=== PATIENT | female | born 1990 | race Caucasian/White ===

== ENCOUNTER 2021-10-25 07:15 | Inpatient (IN) | payer MEDICAID ==
[2021-10-25] MEDS ORDERED: Acetaminophen 500 MG Tab PO ONE (08:30)
[2021-10-25] MEDS ORDERED: Scopolamine 1.5 MG Transdermal Patch TOP SCH (08:30)
[2021-10-25] MEDS ORDERED: Dextrose 5%-Lactated Ringers 1,000 ML IV SCH ×2 (08:30→15:00)
[2021-10-25] MEDS ORDERED: Celecoxib 200 MG Cap PO ONE (09:00)
[2021-10-25] MEDS ORDERED: cefOXitin 2 GM in Sodium Chloride 0.9% 50 ML IV ONE (09:15)
[2021-10-25 09:18] LABS: HEMOGLOBIN A1C 7.5 % (4.5-6.2)
[2021-10-25] MEDS ORDERED: Propofol 200 MG/20 ML SDV ONE (10:14)
[2021-10-25] MEDS ORDERED: Dexamethasone 4 MG/ML SDV ONE (10:14)
[2021-10-25] MEDS ORDERED: Ondansetron 4 MG/2 ML SDV ONE (10:14)
[2021-10-25] MEDS ORDERED: fentaNYL 250 MCG/5 ML SDV ONE ×2 (10:14→12:17)
[2021-10-25] MEDS ORDERED: Glycopyrrolate 0.2 MG/ML 5 ML MDV ONE (10:14)
[2021-10-25] MEDS ORDERED: Succinylcholine 200 MG/10 ML MDV ONE (10:14)
[2021-10-25] MEDS ORDERED: Neostigmine Methylsulfate 1 MG/ML 5 ML Syringe ONE (10:14)
[2021-10-25] MEDS ORDERED: Rocuronium 50 MG/5 ML Vial ONE (10:14)
[2021-10-25] MEDS ORDERED: Ketamine 15 MG in Sodium Chloride 0.9% 19.85 ML IV SCH (10:15)
[2021-10-25] MEDS ORDERED: Ketamine 500 MG/5 ML MDV IV SCH (10:15)
[2021-10-25] MEDS ORDERED: Lactated Ringers 1,000 ML ONE (10:17)
[2021-10-25] MEDS ORDERED: Labetalol 20 MG/4 ML Syringe ONE (12:49)
[2021-10-25] MEDS ORDERED: cefOXitin 2 GM Vial IRR ONE (12:53)
[2021-10-25] MEDS ORDERED: hydrOXYzine HCL 100 MG/2 ML SDV IM ONE (13:59)
[2021-10-25] MEDS ORDERED: fentaNYL 100 MCG/2 ML SDV IVPUSH ONE (13:59)
[2021-10-25] MEDS ORDERED: Cyclobenzaprine 10 MG Tab PO PRN (14:52)
[2021-10-25] MEDS ORDERED: Metoclopramide 10 MG/2 ML SDV IVPUSH PRN (15:00)
[2021-10-25] MEDS ORDERED: Glucagon,Human Recombinant 1 MG Vial IM PRN (15:00)
[2021-10-25] MEDS ORDERED: diphenhydrAMINE 50 MG/ML SDV IVPUSH PRN (15:00)
[2021-10-25] MEDS ORDERED: Acetaminophen 500 MG Tab PO PRN (15:00)
[2021-10-25] MEDS ORDERED: 50% Dextrose in Water 50 ML Syringe IVPUSH PRN (15:00)
[2021-10-25] MEDS ORDERED: hydrOXYzine HCL 100 MG/2 ML SDV IM PRN (15:00)
[2021-10-25] MEDS ORDERED: Ondansetron 4 MG/2 ML SDV IVPUSH PRN (15:00)
[2021-10-25] MEDS ORDERED: HYDROmorphone 0.5 MG/0.5 ML Syringe IVPUSH PRN (15:00)
[2021-10-25] MEDS ORDERED: Labetalol 20 MG/4 ML Syringe IVPUSH PRN (15:00)
[2021-10-25] MEDS: Lactated Ringers 1,000 ML IV SCH (15:02)
[2021-10-25] MEDS: HYDROmorphone 1 MG/ML Syringe IV PRN ×2 (15:18→19:37)
[2021-10-25] MEDS ORDERED: Pantoprazole 40 MG Vial IVPUSH SCH (16:00)
[2021-10-25] MEDS: Potassium Chloride 20 MEQ, Lidocaine 1% 2 ML in Sodium Chloride 0.9% 100 ML IV SCH ×2 (16:30→19:44)
[2021-10-25] MEDS: MVI, Adult with Vitamin K 10 ML, Thiamine 200 MG, Zinc/Copper/Manganese/Selenium 1 ML i... IV SCH ×4 (16:31)
[2021-10-25] MEDS: Insulin Lispro 100 Unit/ML 3 ML KwikPen SUBCUT SCH ×2 (16:41→21:11)
[2021-10-25] MEDS: Acetaminophen 500 MG Tab PO SCH ×2 (16:42→23:23)
[2021-10-25] MEDS: Heparin Sodium 5,000 Units/ML Vial SUBCUT SCH (17:43)
[2021-10-25] MEDS: cefOXitin 2 GM in Sodium Chloride 0.9% 50 ML IV SCH (18:30)
[2021-10-26] MEDS: cefOXitin 2 GM in Sodium Chloride 0.9% 50 ML IV SCH ×4 (00:30→18:44)
[2021-10-26] MEDS: traMADol 50 MG Tab PO PRN ×3 (02:11→23:40)
[2021-10-26] MEDS: Lactated Ringers 1,000 ML IV SCH (04:38)
[2021-10-26] MEDS: Insulin Lispro 100 Unit/ML 3 ML KwikPen SUBCUT SCH ×4 (05:03→21:43)
[2021-10-26] MEDS ORDERED: Iopamidol 612 MG/ML 50 ML SDV PO ONE (05:04)
[2021-10-26] MEDS: Heparin Sodium 5,000 Units/ML Vial SUBCUT SCH ×2 (05:55→18:44)
[2021-10-26] MEDS: oxyCODONE 5 MG Tab PO PRN ×2 (05:56→21:02)
[2021-10-26] MEDS ORDERED: Lactated Ringers 1,000 ML IV SCH (07:15)
[2021-10-26] MEDS: Potassium Chloride 20 MEQ, Lidocaine 1% 2 ML in Sodium Chloride 0.9% 100 ML IV SCH ×3 (08:39→15:40)
[2021-10-26] MEDS: Celecoxib 200 MG Cap PO SCH ×2 (08:47→21:03)
[2021-10-26] MEDS: Fluticasone NASAL Spray 16 GM Bottle NASBOTH SCH ×2 (08:47→08:50)
[2021-10-26] MEDS: Acetaminophen 500 MG Tab PO SCH ×3 (08:47→23:29)
[2021-10-26] MEDS: Hydrochlorothiazide 25 MG Tab PO SCH (08:47)
[2021-10-26] MEDS: SCOPOLAMINE PATCH CHECK TOP SCH (08:48)
[2021-10-26] MEDS: MVI, Adult with Vitamin K 10 ML, Thiamine 200 MG, Zinc/Copper/Manganese/Selenium 1 ML i... IV SCH ×4 (15:41)
[2021-10-26] MEDS ORDERED: Pantoprazole 40 MG Delayed-Release Granules 1 Packet PO SCH (16:00)
[2021-10-27] MEDS: Insulin Lispro 100 Unit/ML 3 ML KwikPen SUBCUT SCH (05:04)
[2021-10-27] MEDS: Heparin Sodium 5,000 Units/ML Vial SUBCUT SCH (06:02)
[2021-10-27] MEDS: Acetaminophen 500 MG Tab PO SCH (08:19)
[2021-10-27] MEDS: oxyCODONE 5 MG Tab PO PRN (08:19)
[2021-10-27] MEDS: Fluticasone NASAL Spray 16 GM Bottle NASBOTH SCH (08:20)
[2021-10-27] MEDS: Celecoxib 200 MG Cap PO SCH (08:21)
[2021-10-27] MEDS: Hydrochlorothiazide 25 MG Tab PO SCH (08:21)
[2021-10-27] MEDS: SCOPOLAMINE PATCH CHECK TOP SCH (08:21)
[2021-10-27] MEDS ORDERED: Potassium Chloride 10% 20 MEQ/15 ML Soln 15 ML UD Cup PO ONE (09:00)
[2021-10-27] MEDS ORDERED: Cyanocobalamin (Vitamin B12) 1,000 MCG/ML SDV IM ONE (09:00)
== END 2021-10-27 10:00 | disposition home or self-care (01) | DRG 621 ==
LOC: EDSTATUS 07:15 → JP.SDS 08:33 → JP.MS 08:33
PROVIDERS: ADMIT Surgery; ATTEND Surgery
PROC: 0D164ZA Bypass Stomach to Jejunum, Percutaneous Endoscopic Approach (ICD-10-PCS; principal; 2021-10-25)
PROC: 0FB24ZX Excision of Left Lobe Liver, Percutaneous Endoscopic Approach, Diagnostic (ICD-10-PCS; 2021-10-25)
PROC: 0BQT4ZZ Repair Diaphragm, Percutaneous Endoscopic Approach (ICD-10-PCS; 2021-10-25)
PROC: 0JB63ZZ Excision of Chest Subcutaneous Tissue and Fascia, Percutaneous Approach (ICD-10-PCS; 2021-10-25)
DX: E66.01 Morbid (severe) obesity due to excess calories (principal); R16.0 Hepatomegaly, not elsewhere classified; K44.9 Diaphragmatic hernia without obstruction or gangrene; D17.4 Benign lipomatous neoplasm of intrathoracic organs; E11.9 Type 2 diabetes mellitus without complications; I10 Essential (primary) hypertension; E87.6 Hypokalemia; Z79.899 Other long term (current) drug therapy; Z79.82 Long term (current) use of aspirin; Z88.8 Allergy status to other drugs, medicaments and biological substances; Z68.43 Body mass index [BMI] 50.0-59.9, adult
CPT/HCPCS: 36415; 74240; 74240-26; 80048; 80053; 81025; 82947; 83036; 83735; 84100; 85025; 85027; 86850; 86900; 86901; 88305; 88307; 88313; A9270-GY; C9113; J0171; J0330; J0694; J1100; J1170; J1644; J1815; J1815-GY; J2405; J2704; J2710; J2795; J3010; J3410; J3411; J3420; J3480; J3490; J7030; J7120; J7121; Q9967

== ENCOUNTER 2021-12-10 06:28 | Day surgery (SDC) | payer MEDICAID ==
[~2021-12-10 06:28] MED LIST: MVI, Adult with Vitamin K 10 ML, Thiamine 200 MG, Chromium/Copper/Mang/Selen/Zn 1 ML in... IV ONE
[2021-12-10] MEDS ORDERED: Lactated Ringers 1,000 ML IV SCH (07:00)
[2021-12-10] MEDS ORDERED: Cyanocobalamin (Vitamin B12) 1,000 MCG/ML SDV IM ONE (07:00)
[2021-12-10] MEDS ORDERED: Glycopyrrolate 0.2 MG/ML 2 ML SDV IVPUSH ONE (07:00)
[2021-12-10] MEDS ORDERED: Midazolam 1 MG/ML 2 ML SDV ONE (07:12)
[2021-12-10] MEDS ORDERED: fentaNYL 100 MCG/2 ML SDV ONE (07:12)
[2021-12-10] MEDS ORDERED: Propofol 200 MG/20 ML SDV ONE (07:12)
[2021-12-10] MEDS ORDERED: Lactated Ringers 1,000 ML ONE (09:54)
== END 2021-12-10 11:31 | disposition home or self-care (01) ==
LOC: JP.SDS 06:28
PROVIDERS: ATTEND Surgery
DX: K91.89 Other postprocedural complications and disorders of digestive system (principal); Z98.84 Bariatric surgery status
CPT/HCPCS: 81025; C1726; J2250; J2704; J3010; J3411; J3420; J3490; J7120

== ENCOUNTER 2021-12-31 07:16 | Day surgery (SDC) | payer MEDICAID ==
[~2021-12-31 07:16] MED LIST changes: -MVI, Adult with Vitamin K 10 ML, Thiamine 200 MG, Chromium/Copper/Mang/Selen/Zn 1 ML in... IV ONE; +Midazolam 1 MG/ML 2 ML SDV ONE; +Propofol 200 MG/20 ML SDV ONE; +fentaNYL 100 MCG/2 ML SDV ONE
[2021-12-31] MEDS ORDERED: Lactated Ringers 1,000 ML IV SCH (07:30)
[2021-12-31] MEDS ORDERED: Cyanocobalamin (Vitamin B12) 1,000 MCG/ML SDV IM ONE (08:15)
[2021-12-31] MEDS ORDERED: MVI, Adult with Vitamin K 10 ML, Zinc/Copper/Manganese/Selenium 1 ML, Thiamine 200 MG i... IV ONE ×4 (08:30)
[2021-12-31] MEDS ORDERED: Glycopyrrolate 0.2 MG/ML 2 ML SDV IVPUSH ONE (08:30)
== END 2021-12-31 10:52 | disposition home or self-care (01) ==
LOC: JP.SDS 07:16
PROVIDERS: ATTEND Surgery
DX: K91.89 Other postprocedural complications and disorders of digestive system (principal); Z98.84 Bariatric surgery status
CPT/HCPCS: C1726; J2250; J2704; J3010; J3411; J3420; J3490; J7120